=== PATIENT | female | born 1995 | race African-American/Black ===

== ENCOUNTER 2020-03-10 17:46 | Emergency (ER) | payer SELFPAY ==
[~2020-03-10] VITALS: Ht 165.1 cm; Wt 88.5 kg
[2020-03-10 17:55] VITALS: BP 151/91
[2020-03-10] MEDS ORDERED: LIDOCAINE /MPF 1% VIAL 5 ML VIAL ONE (18:13)
[2020-03-10] MEDS ORDERED: ACETAMINOPHEN 325 MG TABLET PO ONE (18:30)
[2020-03-10] MEDS ORDERED: ACETAMINOPHEN ES 500 MG TABLET ONE (18:40)
--- NOTE | 2020-03-10 19:30 | NUR ---
KIERSTEN WITH PATIENT FOR PROCEDURE.
--- NOTE | 2020-03-10 19:42 | NUR ---
EMT AT BEDSIDE FOR WOUND CLEANING AND DRESSING. CLEANSE WITH NS, PAT DRY, APPLY BACITRACIN THEN WRAPPED.
== END 2020-03-10 20:19 | disposition home or self-care (01) ==
LOC: ER 17:53
DX: S61.305A Unspecified open wound of left ring finger with damage to nail, initial encounter (principal); Z88.2 Allergy status to sulfonamides; Y08.89XA Assault by other specified means, initial encounter; Y93.89 Activity, other specified; Y92.89 Other specified places as the place of occurrence of the external cause; Y99.8 Other external cause status
CPT/HCPCS: 11730; 99284; J3490

== ENCOUNTER 2020-05-31 18:39 | Emergency (ER) | payer SELFPAY ==
[~2020-05-31] VITALS: Ht 165.1 cm; Wt 86.2 kg
[2020-05-31 18:45] VITALS: BP 165/100
[2020-05-31] MEDS ORDERED: LIDOCAINE HCL/MPF 1% 30 ML VIAL IJ ONE (18:53)
[2020-05-31] MEDS ORDERED: LIDOCAINE 1% INJ 50 ML MDV IJ ONE (19:00)
[2020-05-31] MEDS ORDERED: TDAP [DIPH/PERTUSSIS/TET] 0.5 ML VIAL IM ONE (19:30)
== END 2020-05-31 19:44 | disposition home or self-care (01) ==
LOC: ER 18:43
DX: S61.306A Unspecified open wound of right little finger with damage to nail, initial encounter (principal); F17.200 Nicotine dependence, unspecified, uncomplicated; Z88.2 Allergy status to sulfonamides; W22.8XXA Striking against or struck by other objects, initial encounter; Y93.89 Activity, other specified; Y92.89 Other specified places as the place of occurrence of the external cause; Y99.8 Other external cause status
CPT/HCPCS: 11750; 73140; 99284; A6403; J3490

== ENCOUNTER 2021-02-18 16:42 | Emergency (ER) | payer OTHER ==
[~2021-02-18] VITALS: Ht 165.1 cm; Wt 99.8 kg
--- NOTE | 2021-02-18 17:08 | NUR ---
Patient camei n to the er c/o chest sharp pain. On room air, breathing evenly and unlabored. Connected to the monitor and pulse ox. kept comfortable, will continue to monitor accordingly.
--- NOTE | 2021-02-18 17:08 | NUR ---
IV started and blood drawned and sent to lab.
[2021-02-18 17:18] LABS: BASOPHILS # (AUTO) 0.1 K/uL (0.0-0.2); HEMATOCRIT 38 % (33-45); HEMOGLOBIN 12.9 g/dL (11.5-14.8); LYMPHOCYTES # (AUTO) 2.1 K/uL (0.8-4.8); LYMPHOCYTES % (AUTO) 26.2 % (20.0-44.0); MEAN CORPUSCULAR HGB CONC 34 g/dl (31.0-36.0); MEAN CORPUSCULAR VOLUME 84 fL (82-100); MONOCYTES # (AUTO) 0.5 K/uL (0.1-1.30); MONOCYTES % (AUTO) 5.7 % (2.0-12.0); NEUTROPHILS # (AUTO) 5.3 K/uL (1.8-8.9); NEUTROPHILS % (AUTO) 65.1 % (43.0-81.0); PLATELET COUNT (AUTO) 481 K/uL (150-450); WHITE BLOOD COUNT (AUTO) 8.1 K/uL (4.3-11.0)
[2021-02-18 17:30] LABS: CALCIUM, SERUM 8.5 mg/dL (8.5-10.1); CARBON DIOXIDE 23 mmol/L (21-32); CHLORIDE 103 mmol/L (98-107); CREATININE 0.7 mg/dL (0.6-1.3); GLUCOSE 118 mg/dL (74-106); POTASSIUM 3.6 mmol/L (3.5-5.1); SODIUM SERUM 137 mmol/L (136-145); UREA NITROGEN, BLOOD 7 mg/dL (7-18)
[2021-02-18 18:01] VITALS: BP 143/98
--- NOTE | 2021-02-18 18:02 | NUR ---
Patient discharged to home in stable condition. Written and verbal after care instructions given. Patient verbalizes understanding of instruction.IV removed. Catheter intact and site benign. Pressure and 4x4 applied to site. No bleeding noted.
== END 2021-02-18 18:01 | disposition home or self-care (01) ==
LOC: ER 16:47
DX: R07.89 Other chest pain (principal); I10 Essential (primary) hypertension; Z88.2 Allergy status to sulfonamides
CPT/HCPCS: 36415; 71045-TC; 80048-TC; 84484-TC; 85025-TC